=== PATIENT | male | born 1950 | race Caucasian/White ===

== ENCOUNTER 2020-04-04 05:48 | Outpatient (RCR) | payer MEDICARE, BC ==
[~2020-04-04 05:48] MED LIST: ATOR10TA66 PO; DILT120C10 PO; DILT120C53 PO; FAMO-119 PO; GLBR2.5T PO; METF-397 PO; ONDA4TAB8 PO; TAMS0.4C2 PO
[2020-04-05] MEDS ORDERED: LEVE500T99 PO (15:06)
[2020-04-05] MEDS ORDERED: BUSP10TA95 PO (15:06)
[2020-04-05] MEDS ORDERED: METO-333 PO (15:06)
[2020-04-05] MEDS ORDERED: DULO60CA59 PO (15:06)
[2020-04-05] MEDS ORDERED: AMLO-251 PO (15:06)
[2020-04-05] MEDS ORDERED: LOSA100T57 PO (15:06)
[2020-04-05] MEDS ORDERED: FLUT1DIS26 IH (15:06)
== END 2020-07-03 | disposition home or self-care (01) ==
LOC: PREOP 05:48
PROVIDERS: ATTEND Surgery
DX: Z01.818 Encounter for other preprocedural examination (principal)

== ENCOUNTER → 2020-08-16 | Outpatient (CLI) | payer MEDICARE, BC ==
[~2020-08-16] MED LIST changes: +AMLO-251 PO; +BUSP10TA95 PO; +DULO60CA59 PO; +FLUT1DIS26 IH; +LEVE500T99 PO; +LOSA100T57 PO; +METO-333 PO
--- NOTE | 2020-08-16 14:00 | Diagnostic Imaging Report ---
PROCEDURE: CT head without contrast. TECHNIQUE: Multiple contiguous axial images were obtained through the brain without the use of intravenous contrast. Auto Exposure Controls were utilized during the CT exam to meet ALARA standards for radiation dose reduction. INDICATION: Palpable lump in the back of the head. No priors. The brain appeared normal. There is no hemorrhage, hydrocephalus, edema, mass, mass effect nor evidence for an elevation of the intracranial pressures. There was no hemorrhage. The basilar cisterns are patent. No sulcal effacement. No findings of a recent infarct. Benign bony excrescence and prominence of the midline occiput inferiorly where there is incidental hypertrophy of the external occipital protuberance/inion. No suspicious or acute calvarial pathology. No findings of neoplasm. Mastoid air cells, middle ear cavities and external auditory canals normal. The paranasal sinuses and orbital contents unremarkable. IMPRESSION: A benign incidental bony prominence at the external occipital protuberance as a variant. No mass or neoplasm. No acute finding. Unremarkable brain. Dictated by: Dictated on workstation # [id number]
== END ==
LOC: RAD 13:45
PROVIDERS: ATTEND Surgery
DX: R22.0 Localized swelling, mass and lump, head (principal)
CPT/HCPCS: 70450

== ENCOUNTER 2020-09-05 05:39 | Outpatient (CLI) | payer MEDICARE, BC ==
[~2020-09-05] VITALS: Ht 172.7 cm; Wt 83.9 kg
[2020-09-05] MEDS ORDERED: INSU100V5 SQ (13:18)
[2020-09-05] MEDS ORDERED: ZEAX100P MC (13:18)
[2020-09-05] MEDS ORDERED: OLME20TA24 PO (13:18)
[2020-09-05] MEDS ORDERED: DIPH25CA48 PO (13:18)
[2020-09-05] MEDS ORDERED: ASPI-999 PO (13:18)
[2020-09-05] MEDS ORDERED: LUTE1CAP4 PO (13:18)
[2020-09-05] MEDS ORDERED: LIRA0.6P SQ (13:18)
[2020-09-05] MEDS ORDERED: GLBR5T PO (13:18)
[2020-09-05] MEDS ORDERED: DILT120C85 PO (13:18)
[2020-09-05] MEDS ORDERED: METF-399 PO (13:18)
[2020-09-05] MEDS ORDERED: ATOR10TA66 PO (13:18)
[2020-09-05] MEDS ORDERED: MULT-1136 PO (13:18)
[2020-09-05] MEDS ORDERED: GARL1TAB2 PO (13:18)
[2020-09-05] MEDS ORDERED: TMSL.4C PO (13:18)
== END 2020-09-05 15:21 | disposition home or self-care (01) ==
LOC: PREOP 05:39
PROVIDERS: ATTEND Surgery
DX: Z01.818 Encounter for other preprocedural examination (principal)

== ENCOUNTER 2020-09-12 08:34 | Day surgery (SDC) | payer MEDICARE, BC ==
[~2020-09-12] VITALS: Ht 172.7 cm; Wt 83.9 kg
[~2020-09-12 08:34] MED LIST changes: +ASPI-999 PO; +DILT120C85 PO; +DIPH25CA48 PO; +GARL1TAB2 PO; +GLBR5T PO; +INSU100V5 SQ; +LIRA0.6P SQ; +LUTE1CAP4 PO; +METF-399 PO; +MULT-1136 PO; +OLME20TA24 PO; +TMSL.4C PO; +ZEAX100P MC
[2020-09-12] MEDS ORDERED: LACTATED RINGERS 1,000 ML IV ONE (08:35)
[2020-09-12] MEDS ORDERED: LACTATED RINGERS 1,000 ML IV STA (08:42)
[2020-09-12 08:56] VITALS: BP 134/86
--- NOTE | 2020-09-12 09:38 | Progress Note-Pre Operative ---
Pre-Operative Progress Note H&P Reviewed The H&P was reviewed, patient examined and no changes noted. Date Seen by Provider: September 12, 2020 Time Seen by Provider: 09:38 Date H&P Reviewed: September 12, 2020 Time H&P Reviewed: 09:38 Pre-Operative Diagnosis: screening colonoscopy PETAR CAICEDO DO September 12, 2020 09:38
[2020-09-12] MEDS ORDERED: PROPOFOL INJECTION 50 ML IV ONE (09:48)
[2020-09-12] MEDS ORDERED: MIDAZOLAM 2 MG/2 ML (VERSED) VIAL ONE (09:49)
[2020-09-12 10:30] VITALS: BP 92/61
[2020-09-12 10:35] VITALS: BP_SYST 100; BP_SYST 97; BP_DIAS 63; BP_DIAS 64
--- NOTE | 2020-09-12 10:42 | Progress Note-Post Operative ---
Post-Operative Progess Note Surgeon (s)/Salt Maker (s) Surgeon PETAR CAICEDO DO Salt Maker: na Pre-Operative Diagnosis screening colonoscopy Post-Operative Diagnosis colon polyps, diverticulosis Procedure & Operative Findings Date of Procedure 09/12/20 Procedure Performed/Findings colonoscopy c hot bx polypectomy x 5 Anesthesia Type per lumber checker Estimated Blood Loss Estimated blood loss (mL): none Specimens/Packing Specimens Removed colon polyps PETAR CAICEDO DO September 12, 2020 10:42
[2020-09-12 10:52] VITALS: BP 113/76
[2020-09-12 10:53] VITALS: BP 113/76
--- NOTE | 2020-09-12 14:36 | OPERATIVE REPORT ---
DATE OF SERVICE: 09/12/2020 PREOPERATIVE DIAGNOSIS: Screening colonoscopy. POSTOPERATIVE DIAGNOSES: Diverticulosis, colon polyps. SURGEON: Petar Arrington DO ANESTHESIA: Per [employer]MENT[employer]OR. PROCEDURE: Colonoscopy with hot biopsy polypectomy x5. INDICATIONS: The patient is a 69-year-old male needing screening colonoscopy. He understands risks and benefits of procedure and wished to proceed with procedure. Consent was signed in the chart. DESCRIPTION OF PROCEDURE: The patient was taken to the endoscopy suite, placed in left lateral recumbent position. Timeout was performed. Digital rectal exam was performed. There were no palpable polyps, masses or ulcerations. Scope was inserted in the rectum and advanced all the way to cecum with minimal difficulty. Prep was adequate. Scope was then slowly retracted back. No polyps, masses or ulcerations within the cecum, ascending colon. In the transverse colon, a small polyp was present, which hot biopsy polypectomy was performed. Splenic flexure, another small polyp was present, which hot biopsy polypectomy was performed. Scope was then continued to be slowly retracted back. No polyps, masses or ulcerations within the descending colon. In the sigmoid colon, diverticulosis was present. Another polyp was present, which hot biopsy polypectomy was performed. Scope was then continuously retracted back into the rectum where two other polyps were present, which hot biopsy polypectomy was performed. Scope was then retroflexed noting no other pathology. Scope was returned to its normal position, slowly withdrawn until completely removed. The patient tolerated procedure well without any complications, taken to recovery room in stable condition. RECOMMENDATIONS: The patient will need repeat colonoscopy in 3 years. Any issues before that be seen at that time. The patient will follow up on pathology in 2 weeks. Job ID: [id number] DocumentID: [id number] Dictated Date: 09/12/2020 10:44:34 Operations Support Professionals Date: 09/12/2020 14:34:22 Dictated By: PETAR ARRINGTON DO
--- NOTE | 2020-09-12 14:50 | Anesthesia-General Post-Op ---
MAC Patient Condition Mental Status/LOC: Same as Preop Cardiovascular: Satisfactory Nausea/Vomiting: Absent Respiratory: Satisfactory Pain: Controlled Complications: Absent Post Op Complications Complications None Follow Up Care/Instructions Patient Instructions None needed. Anesthesiology Discharge Order Discharge Order Patient is doing well, no complaints, stable vital signs, no apparent adverse anesthesia problems. No complications reported per nursing. NABEEL BARRAZA CRNA September 12, 2020 14:50
== END 2020-09-12 11:36 | disposition home or self-care (01) ==
LOC: ENDO 08:34
PROVIDERS: ATTEND Surgery
DX: Z12.11 Encounter for screening for malignant neoplasm of colon (principal); D12.3 Benign neoplasm of transverse colon; D12.5 Benign neoplasm of sigmoid colon; D12.8 Benign neoplasm of rectum; K57.30 Diverticulosis of large intestine without perforation or abscess without bleeding; E11.9 Type 2 diabetes mellitus without complications; E78.00 Pure hypercholesterolemia, unspecified; E78.5 Hyperlipidemia, unspecified; Z79.84 Long term (current) use of oral hypoglycemic drugs; Z79.899 Other long term (current) drug therapy

== ENCOUNTER → 2022-05-30 | Outpatient (CLI) | payer MEDICARE, BC ==
[~2022-05-30] VITALS: Wt 83.9 kg
[~2022-05-30] MED LIST changes: +IRON DEXTRAN 1,000 MG/NS 250 ML IVPB IV ONE; +IRON DEXTRAN 25 MG/NS 6.25 ML TOTAL VOLUME IV ONE
[2022-05-30 13:24] VITALS: BP 135/72
== END ==
LOC: SDC 13:02
PROVIDERS: ATTEND Internal Medicine
DX: D50.9 Iron deficiency anemia, unspecified (principal)
CPT/HCPCS: 96365